=== PATIENT | male | born 1965 | race Caucasian/White ===

== ENCOUNTER 2017-06-13 09:18 | Inpatient (IN) | payer OTHER ==
--- NOTE | 2017-05-28 15:14 | HP ---
SURGICAL PREADMISSION HISTORY AND PHYSICAL DATE OF ADMISSION: 06/13/2017 Patient is to be admitted through the [facility]. HISTORY: This is a 52-year-old man who I had initially evaluated 10 years ago for a chronically incarcerated ventral hernia. At that time, he failed to move in the direction of definitive management. Since that time, he has gone on to develop an increase in the size of his hernia, as well as an increase in symptoms. He has ultimately decided at this juncture to move in the direction of definitive management. No underlying GI, , or respiratory complaints to suggest predisposition to hernia formation. PAST MEDICAL HISTORY: Significant for seasonal asthma, hypertension, arthritis, as well as sinus and respiratory infections. PAST SURGICAL HISTORY: Significant for left total hip replacement, and open appendectomy, as well as a prior cardiac catheterization. Additionally, he has undergone an excision of a cyst of the left maxilla. ALLERGIES: No known medication allergies. CURRENT MEDICATIONS: Include Advair Diskus, Combivent, Bibiana, Cardizem, simvastatin, Paxil, Ambien p.r.n., Celebrex, and Mucinex. SOCIAL HISTORY: Negative tobacco. Positive alcohol, only once or twice monthly. FAMILY HISTORY: Father with history of prostate cancer. Mother with history of hypertension. Siblings none. REVIEW OF SYSTEMS: Nil. PHYSICAL EXAMINATION: Abdomen: Protuberant, soft, and nontender. Obvious, rather large hernia involving the central ring of the abdomen and extending inferiorly to the right, encompassing a portion of his prior open appendectomy scar. The hernia is incarcerated. The abdomen itself is soft and nontender otherwise. The groins are intact. IMPRESSION: Complex, chronically incarcerated ventral/incisional abdominal wall hernia. PLAN: Open reduction and repair of complex, chronically incarcerated ventral/incisional abdominal wall hernia with mesh. Indications, alternatives, possible complications reviewed. Consent obtained. Patient was seen preoperatively by Dr. Philip Garcia of the medical service. Please refer to his notes for those medical details. MIKE HANEY M.D. [id number] cc: [facility] Philip Garcia MD
[2017-06-06 15:25] VITALS: BMI 27.6
[2017-06-13] MEDS ORDERED: TAMSULOSIN HCL 0.4 MG CAP.ER.24H (FP) ONE (09:34)
[2017-06-13] MEDS ORDERED: MIDAZOLAM HCL 2 MG/2 ML SINGLE DOSE VIAL ONE (11:41)
[2017-06-13] MEDS ORDERED: ROPIVACAINE HCL 0.5% 30ML VIAL ONE (11:41)
[2017-06-13] MEDS ORDERED: DEXAMETHASONE SOD PHOSPHATE/PF 10 MG/ML SDV ONE (11:41)
[2017-06-13] MEDS ORDERED: BUPIVACAINE HCL/PF 0.5% (5MG/ML) 10 ML VIAL ONE (12:18)
[2017-06-13] MEDS ORDERED: DESFLURANE GAS 240 ML BOTTLE IH ONE (12:47)
[2017-06-13] MEDS ORDERED: ONDANSETRON 4 MG/2 ML VIAL IVPUSH PRN (14:20)
[2017-06-13] MEDS ORDERED: ONDANSETRON 4 MG/2 ML VIAL IVPB PRN (14:20)
[2017-06-13] MEDS ORDERED: COMBIVENT PO PRN (14:23)
[2017-06-13] MEDS ORDERED: ACETAMINOPHEN 325 MG TABLET (FP) PO PRN (14:30)
[2017-06-13] MEDS ORDERED: D5-1/2NS+20 MEQ KCL - 1,000 ML IV SCH (14:30)
[2017-06-13] MEDS ORDERED: ONDANSETRON 4 MG/2 ML VIAL ONE (14:41)
[2017-06-13] MEDS ORDERED: LACTATED RINGERS SOLUTION 1,000 ML IV SCH (15:00)
[2017-06-13] MEDS ORDERED: KETOROLAC TROMETHAMINE 15 MG/ML VIAL IVPUSH PRN (17:00)
[2017-06-13] MEDS ORDERED: PT OWN MED DRAWER 7, Y5N ONE (22:17)
[2017-06-13] MEDS: FAMOTIDINE 20 MG/50 ML IVPB 50 ML IVPB SCH (22:19)
[2017-06-13] MEDS: BUDESONIDE/FORMETEROL FUMARATE 80/4.5 mcg INHALER IH SCH (22:20)
--- NOTE | 2017-06-13 22:58 | HOSP ---
Subjective - Review of Symptoms Events since last encounter: Nurse reports pt voiding very small amounts, bladder scan with approx 800cc. RN unable to pass cleaning and called hospitalist for assistance. Subjective: Pt c/o unable to void/fully empty bladder with lower abdominal pain. Physical Examination Vital Signs: Vital Signs Temperature 98.5 F 06/13/17 22:23 Pulse Rate 117 H 06/13/17 22:23 Respiratory Rate 18 06/13/17 22:23 Blood Pressure 106/62 06/13/17 22:23 O2 Sat by Pulse Oximetry (%) 99 06/13/17 15:20 Gastrointestinal: Yes: Other (fullness appreciated suprapubic area with tenderness) Hospitalist Encounter Assessment: urinary retention postop - #16F cleaning cath placed. minimal resistance when passing prostate. pt reports feeling better. tolerated procedure well. - refer back to surgical team for management.
[2017-06-13] MEDS: HYDROmorphone HCL CARPU-JECT 1 MG/1 ML DISP.SYRIN IVPB PRN (23:00)
[2017-06-14] MEDS: HYDROmorphone HCL CARPU-JECT 1 MG/1 ML DISP.SYRIN IVPB PRN (03:30)
[2017-06-14] MEDS: ENOXAPARIN NA (PORCINE) 40 MG/0.4 ML DISP.SYRIN SQ SCH (06:20)
[2017-06-14] MEDS: FAMOTIDINE 20 MG/50 ML IVPB 50 ML IVPB SCH ×2 (09:34→21:14)
[2017-06-14] MEDS: BUDESONIDE/FORMETEROL FUMARATE 80/4.5 mcg INHALER IH SCH ×2 (09:42→21:14)
[2017-06-14] MEDS ORDERED: ENOXAPARIN NA (PORCINE) 40 MG/0.4 ML DISP.SYRIN SQ SCH (10:00)
[2017-06-14] MEDS ORDERED: PAXIL 25 MG PO SCH (10:00)
[2017-06-14] MEDS: traMADol HCL 50 MG TABLET PO PRN (11:46)
--- NOTE | 2017-06-14 11:52 | OP ---
DATE OF OPERATION: 06/13/2017 PREOPERATIVE DIAGNOSIS: Complex, chronically incarcerated ventral/incisional abdominal wall hernia. POSTOPERATIVE DIAGNOSIS: Complex, chronically incarcerated ventral/incisional abdominal wall hernia. PROCEDURE: Open bilateral component-separation repair of complex, chronically incarcerated ventral/incisional abdominal wall hernia with mesh. OPERATING SURGEON: Lino Carlisle MD COOK JELLY: ANESTHESIA: General. HISTORY: This is a 52-year-old man who I had initially seen 10 years ago with a chronically incarcerated ventral hernia. He did not undergo definitive management at that time, of his choosing. He only recently returned to the office stating that the hernia had become significantly larger in size, and he had become quite symptomatic. Patient now opting for definitive repair. Patient has had prior lower abdominal surgery for appendicitis. His hernia encompasses not only the central ring of the abdomen but extends inferiorly to the right, encompassing a portion of the open appendectomy scar. Patient also with a large diastasis recti superiorly. Indications, alternatives, and possible complications reviewed. Consent obtained. DESCRIPTION OF PROCEDURE: With the patient in supine position, after general anesthesia, the abdomen was prepped and draped in sterile fashion using chlorhexidine. A midline incision was made beginning above the umbilicus and extending for a distance of a couple inches below the umbilicus. The incision was deepened into the subcutaneous space. The hernia sac was easily encountered at the level of the central ring. The sac was opened. Lysis of adhesions ensued, freeing any of the underlying viscera. As clinically noted, the hernia extended inferiorly and to the right, encompassing a portion of the old appendectomy scar. Additionally, there were multiple defects along the supraumbilical midline in a [id number] fashion. These were all entirely reduced. First directing our attention to the patient's right side, the posterior sheath was from the overlying rectus muscle fibers. This plane of dissection was carried out in a lateral direction as well as inferiorly and superiorly. This separation was complete to the level of the juncture of the rectus muscle with the oblique musculature. At the oblique musculature, there was significant scarring in the right lower quadrant consistent with prior hernia surgery. Now directing our attention to the left side, the posterior sheath again was from the overlying rectus muscle fibers. This dissection again was carried down in a lateral direction, as well as superior and inferiorly, and again, reaching out at the level of the oblique musculature. A custom composite mesh was made using a piece of ProGrip polyester mesh measuring 30 x 15 cm in size. This was sutured to a piece of [employer] OviTex. This was accomplished using circumferential 4-0 Vicryl sutures. The custom mesh was then placed in the retrorectus space with the OviTex side down. This was spanned out in all directions, filling the retrorectus space and extending not only laterally but superiorly as well as inferiorly. Using an AbsorbaTacker, the mesh was tacked at its periphery in a circumferential fashion. This anchored the mesh in the retrorectus space after the posterior sheath had been reapproximated in the midline, creating the posterior midline itself. After adequate hemostasis and irrigation, the anterior rectus sheath was then closed using interrupted and continuous PDS sutures, leaving the mesh entirely in the retrorectus space. Adequate hemostasis was secured at the level of the subcutaneous space. Tyrell-Villasenor drain was left in the subcutaneous space and exited at the level of the lower abdomen where it was tacked to the skin with 2-0 silk suture material. The wound was then closed in layers. The subcutaneous tissues were approximated using interrupted 2-0 chromic suture. The subcuticular was approximated using interrupted 4-0 Biosyn suture. Skin edges were approximated using metallic clips. Needle and instrument count correct. ESTIMATED BLOOD LOSS: Minimal. SPECIMEN: None. IMPLANT: [employer]idian ProGrip mesh/[employer] OviTex mesh. DRAIN: One SARY. Patient tolerated the procedure. Procedure was terminated. Elisabeth [id number] cc: Philip Garcia MD
[2017-06-14] MEDS ORDERED: TAMSULOSIN HCL 0.4 MG CAP.ER.24H (FP) PO SCH (22:00)
[2017-06-15] MEDS: HYDROmorphone HCL CARPU-JECT 1 MG/1 ML DISP.SYRIN IVPB PRN (00:19)
[2017-06-15 06:33] VITALS: BP 145/89; PULSE 87; TEMP 98
[2017-06-15] MEDS: traMADol HCL 50 MG TABLET PO PRN (07:00)
[2017-06-15] MEDS ORDERED: TAMSULOSIN HCL 0.4 MG CAP.ER.24H (FP) PO SCH (09:11)
[2017-06-15] MEDS: FAMOTIDINE 20 MG/50 ML IVPB 50 ML IVPB SCH (10:01)
[2017-06-15] MEDS: ENOXAPARIN NA (PORCINE) 40 MG/0.4 ML DISP.SYRIN SQ SCH (10:01)
[2017-06-15] MEDS: BUDESONIDE/FORMETEROL FUMARATE 80/4.5 mcg INHALER IH SCH (11:27)
--- NOTE | 2017-06-16 13:02 | DS ---
DATE OF ADMISSION: 06/13/2017 DATE OF DISCHARGE: 06/15/2017 FINAL DIAGNOSIS: Complex chronically incarcerated abdominal wall hernia. PROCEDURE: Bilateral component separation repair complex chronically incarcerated abdominal wall hernia with mesh. CONDITION ON DISCHARGE: Stable. HISTORY: A 52-year-old man who presented with a complex abdominal wall hernia for repair. Underwent a bilateral component separation repair of complex hernia on June 13, 2017. During the patient's course of admission over the past 48 hours, he had been unable to void postoperatively. With the use of Flomax, he is now voiding normally. He has mobilized himself today and is walking. His midline wound is intact, and his J-P is scant. He is tolerating a diet. DISCHARGE DISPOSITION: No contraindication to discharge home. DISCHARGE MEDICATIONS: Include Ultram p.r.n. Apparently, the patient has been having some difficulty voiding prior to his surgery as well. He will move in the direction of urologic consultation for evaluation of his prostate. MIKE HANEY M.D. [id number]
== END 2017-06-15 11:20 | disposition home or self-care (01) | DRG 355 ==
LOC: FASU 09:18 → FM/S 14:51
PROVIDERS: ADMIT Surgery; ATTEND Surgery
PROC: 0WUF0JZ Supplement Abdominal Wall with Synthetic Substitute, Open Approach (ICD-10-PCS; principal; 2017-06-13 12:43)
DX: K43.2 Incisional hernia without obstruction or gangrene (principal); N99.89 Other postprocedural complications and disorders of genitourinary system; R33.8 Other retention of urine; Y83.8 Other surgical procedures as the cause of abnormal reaction of the patient, or of later complication, without mention of misadventure at the time of the procedure; J45.909 Unspecified asthma, uncomplicated; I10 Essential (primary) hypertension; M13.88 Other specified arthritis, other site; Z96.642 Presence of left artificial hip joint
CPT/HCPCS: 74000-TC; 94760